=== PATIENT | female | born 1955 | race Caucasian/White ===

== ENCOUNTER 2016-06-04 22:01 | Emergency (ER) | payer MEDICAID ==
[~2016-06-04] VITALS: Ht 144.8 cm; Wt 73.0 kg
[~2016-06-04 22:01] MED LIST: AMLO10TA4 PO; ASPI-1035 PO; ATOR20TA PO; CALCIUM ACETATE PO; CLOP75TA33 PO; DOCU-150 PO; FOLI-43 PO; GLIP5TAB12 PO; Hydralazine Hcl PO; NEPVIT PO; OMEP20CA10 PO; SEVE800T PO; TRAM50TA3 PO
[2016-06-04 22:58] LABS: BASOPHILS % 0.5 % (0.0-2.0); EOSINOPHILS % 1.5 % (0.0-5.0); HEMATOCRIT. 33.1 % (36.0-48.0); HEMOGLOBIN. 10.9 g/dL (12.0-16.0); LYMPHOCYTES % 12.5 % (20.0-50.0); MEAN CORPUSCULAR HEMOGLOBIN 31.7 pg (28.0-32.0); MEAN CORPUSCULAR VOLUME 96.3 fL (81.0-99.0); MEAN PLATELET VOLUME 9.1 fl (7.4-10.4); MONOCYTES % 8.3 % (2.0-8.0); NEUTROPHILS % 77.2 % (40.0-76.0); PLATELET 147 x1000/uL (130-400); RED BLOOD CELL COUNT 3.44 mill/uL (4.2-5.4); RED CELL DISTRIBUTION WIDTH 13.4 % (11.6-14.6); WHITE BLOOD COUNT 5.4 x1000/uL (4.5-11.0)
[2016-06-04 23:16] LABS: ALANINE AMINOTRANSFERASE 25 IU/L (13-61); ALBUMIN 3.4 g/dL (3.4-5.0); ANION GAP 16; CALCIUM 8.5 mg/dL (8.5-10.1); CARBON DIOXIDE 30 mEq/L (21-32); CHLORIDE 91 mEq/L (98-107); INDEX HEMOLYSI 1 (1-3); INDEX ICTERIC 1 (1-4); INDEX LIPEMIC 1 (1-3); UREA NITROGEN BLOOD 31 mg/dL (7-21); eGFR 10 mL/min (>60)
[2016-06-05] MEDS ORDERED: INSULIN REGULAR (HUMULIN R) 300UNITS/3ML SUBCUT ONE
[2016-06-05 02:52] VITALS: BP 140/62
== END 2016-06-05 04:06 | disposition home or self-care (01) ==
LOC: ER 22:01
DX: L97.819 Non-pressure chronic ulcer of other part of right lower leg with unspecified severity (principal); E11.622 Type 2 diabetes mellitus with other skin ulcer; E78.00 Pure hypercholesterolemia, unspecified; I12.0 Hypertensive chronic kidney disease with stage 5 chronic kidney disease or end stage renal disease; N18.6 End stage renal disease; Z99.2 Dependence on renal dialysis; Z95.2 Presence of prosthetic heart valve; Z98.890 Other specified postprocedural states; Z79.82 Long term (current) use of aspirin
CPT/HCPCS: 36415; 73590; 80053; 82962; 85025; 96372; 99285; J1815; Z7610

== ENCOUNTER 2016-12-15 14:18 | Inpatient (IN) | payer MEDICAID ==
[~2016-12-15] VITALS: Ht 162.6 cm; Wt 77.1 kg
[~2016-12-15 14:18] MED LIST changes: -ASPI-1035 PO; +ASPI-1159 PO; +REN800 PO; -SEVE800T PO
[2016-12-15] MEDS ORDERED: ONDANSETRON HCL 4MG/2ML VIAL IV STA (15:13)
[2016-12-15] MEDS ORDERED: MORPHINE SULFATE 4 MG/ML CPJ (NOT FOR IM USE) IV STA (15:13)
[2016-12-15] MEDS ORDERED: SODIUM CHLORIDE 0.9% 500 ML IV ONE (15:13)
[2016-12-15 15:47] LABS: BASOPHILS % 0.7 % (0.0-2.0); EOSINOPHILS % 0.5 % (0.0-5.0); HEMATOCRIT. 32.6 % (36.0-48.0); LYMPHOCYTES % 7.9 % (20.0-50.0); MEAN CORPUSCULAR HEMOGLOBIN 31.3 pg (28.0-32.0); MEAN CORPUSCULAR VOLUME 92.4 fL (81.0-99.0); MEAN PLATELET VOLUME 9.9 fl (7.4-10.4); MONOCYTES % 6.6 % (2.0-8.0); NEUTROPHILS % 84.3 % (40.0-76.0); PLATELET 138 x1000/uL (130-400); RED BLOOD CELL COUNT 3.53 mill/uL (4.2-5.4); RED CELL DISTRIBUTION WIDTH 13.2 % (11.6-14.6)
[2016-12-15 15:53] LABS: PARTIAL THROMBOPLASTIN TIME 24.5 sec (23.4-31.0)
[2016-12-15] MEDS ORDERED: INSULIN REGULAR (HUMULIN R) UD 100 UNITS/ML SYR SUBCUT ONE (16:45)
[2016-12-15] MEDS ORDERED: INSULIN REGULAR (HUMULIN R) 300UNITS/3ML SUBCUT ONE (18:30)
[2016-12-15] MEDS ORDERED: ASPIRIN 325MG EC TABLET PO ONE (18:30)
[2016-12-15] MEDS ORDERED: ACETAMINOPHEN 325MG TABLET PO PRN (22:30)
[2016-12-15] MEDS ORDERED: DOCUSATE SODIUM 100MG CAPSULE PO PRN (22:30)
[2016-12-15] MEDS ORDERED: IPRATROPIUM/ALBUTEROL 0.5-3(2.5)MG/3ML NEB INH PRN (22:30)
[2016-12-15] MEDS ORDERED: CLONIDINE 0.1MG TABLET PO PRN (22:30)
[2016-12-15] MEDS ORDERED: MAGNESIUM/ALUMINUM HYDROXIDE/SIMETHICONE 30ML UDC PO PRN (22:30)
[2016-12-15] MEDS ORDERED: ONDANSETRON HCL 4MG/2ML VIAL IV PRN (22:30)
[2016-12-15 23:30] VITALS: BP 113/48
[2016-12-16] VITALS (7 sets, daily range): BP systolic 113–135; BP diastolic 36–52
[2016-12-16] MEDS: HYDROCODONE/ACETAMINOPHEN 5/325MG TABLET PO PRN ×2 (04:00→09:14)
[2016-12-16] MEDS ORDERED: DEXTROSE 50% WATER 50ML SYRINGE IV PRN (04:15)
[2016-12-16] MEDS: BLOOD SUGAR DIAGNOSTIC STRIP TEST SCH ×4 (06:45→21:18)
[2016-12-16] MEDS: INSULIN LISPRO 100 UNITS/ML SUBCUT SCH ×4 (06:49→21:18)
[2016-12-16 07:20] LABS: BASOPHILS % 0.5 % (0.0-2.0); EOSINOPHILS % 1.7 % (0.0-5.0); HEMATOCRIT. 27.5 % (36.0-48.0); HEMOGLOBIN. 9.4 g/dL (12.0-16.0); LYMPHOCYTES % 15.8 % (20.0-50.0); MEAN CORPUSCULAR HEMOGLOBIN 31.2 pg (28.0-32.0); MEAN CORPUSCULAR VOLUME 91.5 fL (81.0-99.0); MEAN PLATELET VOLUME 9.8 fl (7.4-10.4); PLATELET 115 x1000/uL (130-400); RED CELL DISTRIBUTION WIDTH 13.3 % (11.6-14.6)
[2016-12-16 08:10] LABS: CREATINE KINASE MB FRACTION 2.4 ng/mL (0.5-3.6); TROPONIN I 0.1 ng/mL (0.00-0.04)
[2016-12-16 18:26] LABS: CREATINE KINASE MB FRACTION 0.6 ng/mL (0.5-3.6); TROPONIN I 0.1 ng/mL (0.00-0.04)
[2016-12-17 00:26] VITALS: BP 118/50
[2016-12-17 04:00] VITALS: BP 115/61
[2016-12-17] MEDS: HYDROCODONE/ACETAMINOPHEN 5/325MG TABLET PO PRN ×2 (05:11→10:18)
[2016-12-17] MEDS: BLOOD SUGAR DIAGNOSTIC STRIP TEST SCH ×4 (06:21→20:18)
[2016-12-17 07:04] LABS: BASOPHILS % 0.5 % (0.0-2.0); EOSINOPHILS % 1.8 % (0.0-5.0); HEMATOCRIT. 28.1 % (36.0-48.0); HEMOGLOBIN. 9.3 g/dL (12.0-16.0); LYMPHOCYTES % 12.6 % (20.0-50.0); MEAN CORPUSCULAR HEMOGLOBIN 30.8 pg (28.0-32.0); MEAN CORPUSCULAR VOLUME 92.7 fL (81.0-99.0); MEAN PLATELET VOLUME 10.2 fl (7.4-10.4); MONOCYTES % 8.6 % (2.0-8.0); NEUTROPHILS % 76.5 % (40.0-76.0); PLATELET 112 x1000/uL (130-400); RED BLOOD CELL COUNT 3.03 mill/uL (4.2-5.4); RED CELL DISTRIBUTION WIDTH 13.4 % (11.6-14.6)
[2016-12-17] MEDS: INSULIN LISPRO 100 UNITS/ML SUBCUT SCH ×4 (07:46→21:00)
[2016-12-17 08:00] VITALS: BP_SYST 145; BP_SYST 149; BP_DIAS 58; BP_DIAS 61
[2016-12-17 12:00] VITALS: BP 136/56
[2016-12-17 16:00] VITALS: BP_SYST 122; BP_SYST 163; BP_DIAS 51; BP_DIAS 98
[2016-12-17 20:00] VITALS: BP 111/56
[2016-12-18] VITALS: BP 124/52
[2016-12-18 04:00] VITALS: BP 141/62
[2016-12-18] MEDS: BLOOD SUGAR DIAGNOSTIC STRIP TEST SCH ×2 (05:36→12:47)
[2016-12-18 05:48] LABS: BASOPHILS % 0.3 % (0.0-2.0); EOSINOPHILS % 1.7 % (0.0-5.0); HEMATOCRIT. 26.1 % (36.0-48.0); HEMOGLOBIN. 8.9 g/dL (12.0-16.0); LYMPHOCYTES % 15.2 % (20.0-50.0); MEAN CORPUSCULAR HEMOGLOBIN 31.3 pg (28.0-32.0); MEAN CORPUSCULAR VOLUME 92.4 fL (81.0-99.0); MEAN PLATELET VOLUME 9.7 fl (7.4-10.4); NEUTROPHILS % 73.8 % (40.0-76.0); PLATELET 115 x1000/uL (130-400); RED BLOOD CELL COUNT 2.83 mill/uL (4.2-5.4); RED CELL DISTRIBUTION WIDTH 13.4 % (11.6-14.6)
[2016-12-18] MEDS: INSULIN LISPRO 100 UNITS/ML SUBCUT SCH ×2 (06:32→12:47)
[2016-12-18 08:00] VITALS: BP 125/54
[2016-12-18 12:00] VITALS: BP 139/57
[2016-12-18 13:43] VITALS: BP 139/57
== END 2016-12-18 18:55 | disposition home health service (06) | DRG 384 ==
LOC: ER 14:33 → 5WST 18:24 → CANRESERV 18:43 → ENRESERV 18:43 → 8WST 23:53
PROVIDERS: ADMIT Internal Medicine; ATTEND Internal Medicine
DX: S80.01XA Contusion of right knee, initial encounter (principal); E11.22 Type 2 diabetes mellitus with diabetic chronic kidney disease; N18.6 End stage renal disease; I12.0 Hypertensive chronic kidney disease with stage 5 chronic kidney disease or end stage renal disease; E11.51 Type 2 diabetes mellitus with diabetic peripheral angiopathy without gangrene; D63.1 Anemia in chronic kidney disease; E11.65 Type 2 diabetes mellitus with hyperglycemia; E11.319 Type 2 diabetes mellitus with unspecified diabetic retinopathy without macular edema; E78.00 Pure hypercholesterolemia, unspecified; H54.7 Unspecified visual loss; I25.10 Atherosclerotic heart disease of native coronary artery without angina pectoris; W01.0XXA Fall on same level from slipping, tripping and stumbling without subsequent striking against object, initial encounter; Y92.009 Unspecified place in unspecified non-institutional (private) residence as the place of occurrence of the external cause; Z79.82 Long term (current) use of aspirin; Z79.84 Long term (current) use of oral hypoglycemic drugs; Z79.899 Other long term (current) drug therapy; Z89.421 Acquired absence of other right toe(s); Z95.0 Presence of cardiac pacemaker; Y92.098 Other place in other non-institutional residence as the place of occurrence of the external cause; Y99.8 Other external cause status
CPT/HCPCS: 36415; 70450; 71010; 73502; 73552; 73560; 73590; 80048; 80061; 82550; 82553; 82962; 83735; 84443; 84484; 85025; 85610; 85730; 86850; 86900; 93005; 93970; 96361; 96372; 96374; 96375; 97110; 97162; 97166; 97530; 97535; 99285; J1815; J2270; J2405; J7030; J7040

== ENCOUNTER 2016-12-18 21:42 | Inpatient (IN) | payer MEDICAID ==
[~2016-12-18] VITALS: Ht 162.6 cm; Wt 79.4 kg
[2016-12-18] MEDS ORDERED: ASPIRIN 81MG TABLET PO ONE (22:30)
[2016-12-18] MEDS ORDERED: NITROGLYCERIN OINT 1GM/INCH UDPKT TD ONE (22:30)
[2016-12-18 23:11] LABS: HEMATOCRIT. 27.2 % (36.0-48.0); MEAN CORPUSCULAR VOLUME 93.4 fL (81.0-99.0); MEAN PLATELET VOLUME 9.8 fl (7.4-10.4); PLATELET 129 x1000/uL (130-400); RED BLOOD CELL COUNT 2.92 mill/uL (4.2-5.4); RED CELL DISTRIBUTION WIDTH 13.4 % (11.6-14.6)
[2016-12-18 23:14] LABS: CHLORIDE 86 mEq/L (98-107)
[2016-12-18 23:19] LABS: PARTIAL THROMBOPLASTIN TIME 28.2 sec (23.4-31.0); PROTHROMBIN TIME 10.2 sec (9.4-11.6)
[2016-12-18 23:23] LABS: CARBON DIOXIDE 26 mEq/L (21-32); ETHANOL BLOOD < 10 mg/dL
[2016-12-18 23:27] LABS: TROPONIN I 0.07 ng/mL (0.00-0.04)
[2016-12-18 23:33] LABS: PLATELET ESTIMATE SLIGHTLY DECREASED
[2016-12-18] MEDS ORDERED: INSULIN REGULAR (HUMULIN R) 300UNITS/3ML IV NR (23:45)
[2016-12-19] MEDS ORDERED: SODIUM POLYSTYRENE SULFONATE 15 G/60 ML BOT PO NR (01:15)
[2016-12-19] MEDS ORDERED: INSULIN REGULAR (HUMULIN R) 300UNITS/3ML IV NR (01:15)
[2016-12-19] MEDS ORDERED: CALCIUM CHLORIDE 1GM/10ML SYR IV NR (01:15)
[2016-12-19] MEDS ORDERED: SODIUM BICARBONATE 8.4% 1 MEQ/ML 50ML SYR IV NR (01:15)
[2016-12-19] MEDS ORDERED: DEXTROSE 50% WATER 50ML SYRINGE IV NR (01:15)
[2016-12-19 03:50] VITALS: BP 137/57
[2016-12-19 04:00] VITALS: BP 137/57
[2016-12-19 08:00] VITALS: BP 129/72
[2016-12-19] MEDS ORDERED: DEXTROSE 50% WATER 50ML SYRINGE IV PRN (09:15)
[2016-12-19 12:00] VITALS: BP 137/60
[2016-12-19] MEDS ORDERED: ACETAMINOPHEN 650MG/20.3ML UDC PO PRN (12:30)
[2016-12-19] MEDS: BLOOD SUGAR DIAGNOSTIC STRIP TEST SCH ×3 (12:45→21:00)
[2016-12-19] MEDS: INSULIN LISPRO 100 UNITS/ML SUBCUT SCH ×3 (12:50→21:46)
[2016-12-19] MEDS: HYDROCODONE/ACETAMINOPHEN 5/325MG TABLET PO PRN ×2 (12:52→18:18)
[2016-12-19 13:48] LABS: HEMATOCRIT. 24.5 % (36.0-48.0); HEMOGLOBIN. 8.4 g/dL (12.0-16.0); MEAN CORPUSCULAR HEMOGLOBIN 31.1 pg (28.0-32.0); MEAN PLATELET VOLUME 9.2 fl (7.4-10.4); PLATELET 131 x1000/uL (130-400); RED BLOOD CELL COUNT 2.69 mill/uL (4.2-5.4); RED CELL DISTRIBUTION WIDTH 13.6 % (11.6-14.6)
[2016-12-19 14:21] LABS: TROPONIN I 0.09 ng/mL (0.00-0.04)
[2016-12-19 16:00] VITALS: BP 136/46
[2016-12-19 16:59] LABS: PLATELET ESTIMATE NORMAL
[2016-12-19] MEDS ORDERED: POTASSIUM CHLORIDE 20MEQ TABLET SR PO NR (18:00)
[2016-12-19 18:41] LABS: CARBON DIOXIDE 30 mEq/L (21-32); CHLORIDE 99 mEq/L (98-107)
[2016-12-19 20:00] VITALS: BP 111/40
[2016-12-19 22:16] LABS: TROPONIN I 0.08 ng/mL (0.00-0.04)
[2016-12-20] VITALS (7 sets, daily range): BP systolic 112–148; BP diastolic 42–61
[2016-12-20] MEDS ORDERED: REGADENOSON 0.4 MG/5 ML IV NR (01:30)
[2016-12-20] MEDS: HYDROCODONE/ACETAMINOPHEN 5/325MG TABLET PO PRN (04:43)
[2016-12-20] MEDS: BLOOD SUGAR DIAGNOSTIC STRIP TEST SCH ×4 (06:31→21:47)
[2016-12-20] MEDS: INSULIN LISPRO 100 UNITS/ML SUBCUT SCH ×4 (06:39→22:09)
[2016-12-20] MEDS: ASPIRIN 81MG TABLET PO SCH (08:52)
[2016-12-20 12:49] LABS: BASOPHILS % 0.5 % (0.0-2.0); HEMATOCRIT. 24.8 % (36.0-48.0); HEMOGLOBIN. 8.3 g/dL (12.0-16.0); LYMPHOCYTES % 13.5 % (20.0-50.0); MEAN CORPUSCULAR HEMOGLOBIN 31.2 pg (28.0-32.0); MEAN CORPUSCULAR VOLUME 93.3 fL (81.0-99.0); MEAN PLATELET VOLUME 9.9 fl (7.4-10.4); MONOCYTES % 11.5 % (2.0-8.0); NEUTROPHILS % 73.5 % (40.0-76.0); PLATELET 146 x1000/uL (130-400); RED BLOOD CELL COUNT 2.66 mill/uL (4.2-5.4); RED CELL DISTRIBUTION WIDTH 13.6 % (11.6-14.6)
[2016-12-20 13:10] LABS: CARBON DIOXIDE 28 mEq/L (21-32); CHLORIDE 97 mEq/L (98-107)
[2016-12-20] MEDS ORDERED: INSU100I28 SQ (17:18)
[2016-12-20] MEDS ORDERED: ATORVASTATIN CALCIUM 20MG TABLET PO SCH (21:00)
[2016-12-20] MEDS: INSULIN DETEMIR UD 100 UNITS/ML SYR SUBCUT SCH (21:54)
[2016-12-21] VITALS: BP 121/51
[2016-12-21 04:00] VITALS: BP 129/54
[2016-12-21] MEDS: HYDROCODONE/ACETAMINOPHEN 5/325MG TABLET PO PRN (04:46)
[2016-12-21] MEDS: BLOOD SUGAR DIAGNOSTIC STRIP TEST SCH ×4 (06:51→21:12)
[2016-12-21] MEDS: GLIPIZIDE 5MG TABLET PO SCH ×2 (06:51→19:05)
[2016-12-21 07:12] LABS: BASOPHILS % 0.6 % (0.0-2.0); EOSINOPHILS % 1.2 % (0.0-5.0); HEMOGLOBIN. 8.4 g/dL (12.0-16.0); LYMPHOCYTES % 10.6 % (20.0-50.0); MEAN CORPUSCULAR HEMOGLOBIN 31.3 pg (28.0-32.0); MEAN CORPUSCULAR VOLUME 93.4 fL (81.0-99.0); MEAN PLATELET VOLUME 9.7 fl (7.4-10.4); MONOCYTES % 8.6 % (2.0-8.0); PLATELET 155 x1000/uL (130-400); RED BLOOD CELL COUNT 2.67 mill/uL (4.2-5.4); RED CELL DISTRIBUTION WIDTH 13.6 % (11.6-14.6)
[2016-12-21] MEDS: INSULIN LISPRO 100 UNITS/ML SUBCUT SCH ×4 (07:36→21:55)
[2016-12-21 08:00] VITALS: BP 124/47
[2016-12-21] MEDS: ASPIRIN 81MG TABLET PO SCH (08:46)
[2016-12-21] MEDS ORDERED: REGADENOSON 0.4 MG/5 ML IV ONE (12:16)
[2016-12-21 16:00] VITALS: BP 123/47
[2016-12-21 16:07] VITALS: BP 144/34
[2016-12-21 20:00] VITALS: BP 147/46
[2016-12-21] MEDS ORDERED: SODIUM POLYSTYRENE SULFONATE 15 G/60 ML BOT PO NR (21:00)
[2016-12-21] MEDS: INSULIN DETEMIR UD 100 UNITS/ML SYR SUBCUT SCH (22:35)
[2016-12-22] VITALS: BP 110/68
[2016-12-22 04:00] VITALS: BP 139/62
[2016-12-22] MEDS: HYDROCODONE/ACETAMINOPHEN 5/325MG TABLET PO PRN (05:17)
[2016-12-22] MEDS: GLIPIZIDE 5MG TABLET PO SCH ×2 (06:15→17:00)
[2016-12-22] MEDS: BLOOD SUGAR DIAGNOSTIC STRIP TEST SCH ×3 (06:15→16:34)
[2016-12-22 06:38] LABS: BASOPHILS % 0.5 % (0.0-2.0); EOSINOPHILS % 1.6 % (0.0-5.0); HEMATOCRIT. 24.1 % (36.0-48.0); HEMOGLOBIN. 8.2 g/dL (12.0-16.0); LYMPHOCYTES % 10.9 % (20.0-50.0); MEAN CORPUSCULAR HEMOGLOBIN 31.3 pg (28.0-32.0); MEAN CORPUSCULAR VOLUME 92.2 fL (81.0-99.0); MEAN PLATELET VOLUME 9.4 fl (7.4-10.4); MONOCYTES % 8.5 % (2.0-8.0); NEUTROPHILS % 78.5 % (40.0-76.0); PLATELET 174 x1000/uL (130-400); RED BLOOD CELL COUNT 2.62 mill/uL (4.2-5.4); RED CELL DISTRIBUTION WIDTH 13.6 % (11.6-14.6)
[2016-12-22] MEDS: INSULIN LISPRO 100 UNITS/ML SUBCUT SCH ×3 (07:04→16:34)
[2016-12-22 08:00] VITALS: BP 156/66
[2016-12-22] MEDS: ASPIRIN 81MG TABLET PO SCH (09:11)
[2016-12-22 12:00] VITALS: BP 144/52
[2016-12-22 15:25] VITALS: BP 130/70
[2016-12-22 16:00] VITALS: BP 155/52
== END 2016-12-22 16:55 | disposition home or self-care (01) | DRG 420 ==
LOC: ER 21:42 → 8WST 12-19 01:03 → ENRESERV 12-19 02:44
PROVIDERS: ADMIT Family Medicine; ATTEND Family Medicine
DX: E11.00 Type 2 diabetes mellitus with hyperosmolarity without nonketotic hyperglycemic-hyperosmolar coma (NKHHC) (principal); I13.2 Hypertensive heart and chronic kidney disease with heart failure and with stage 5 chronic kidney disease, or end stage renal disease; E43 Unspecified severe protein-calorie malnutrition; N18.6 End stage renal disease; D64.9 Anemia, unspecified; S80.01XA Contusion of right knee, initial encounter; R07.9 Chest pain, unspecified; K21.9 Gastro-esophageal reflux disease without esophagitis; E11.40 Type 2 diabetes mellitus with diabetic neuropathy, unspecified; E11.51 Type 2 diabetes mellitus with diabetic peripheral angiopathy without gangrene; I50.9 Heart failure, unspecified; E11.65 Type 2 diabetes mellitus with hyperglycemia; E11.319 Type 2 diabetes mellitus with unspecified diabetic retinopathy without macular edema; E87.5 Hyperkalemia; J98.11 Atelectasis; E87.6 Hypokalemia; H54.7 Unspecified visual loss; Z95.0 Presence of cardiac pacemaker; Z99.2 Dependence on renal dialysis; Z91.81 History of falling; Z79.02 Long term (current) use of antithrombotics/antiplatelets; Z79.82 Long term (current) use of aspirin; Z79.899 Other long term (current) drug therapy; Z89.422 Acquired absence of other left toe(s); W19.XXXA Unspecified fall, initial encounter; Y93.89 Activity, other specified; Y92.89 Other specified places as the place of occurrence of the external cause; Y99.8 Other external cause status; E87.1 Hypo-osmolality and hyponatremia
CPT/HCPCS: 36415; 71010; 73560; 78452; 80048; 80053; 80061; 82962; 83036; 84132; 84484; 85025; 85610; 85730; 87040; 93005; 93017; 93306; 96374; 96375; 97162; 97530; 99291; A9500; G0482; J1815; J2785; J3490; J7030